=== PATIENT | female | born 1945 | race Caucasian/White ===

== ENCOUNTER → 2017-11-19 | Outpatient (CLI) | payer MEDICARE, OTHER ==
[~2017-11-19] MED LIST: ACID REDUCER; AMLO10; AMLO5 PO; ASPI81CH PO; ATOR20 PO; Benicar40 MG; ESOM20; FISH1000 PO; FURO20 PO; MULT50L PO; POTCHL10ER PO; SPIHYD PO; VALS80 PO; [UNRECOGNIZED DRUG - OTHER] PO
[2017-11-20 09:29] LABS: Alanine Aminotransfer (ALT/SGP 15 U/L (12-78); Albumin, Blood 3.9 g/dL (3.4-5.0); Albumin/Globulin Ratio 1.3 (0.8-1.8); Alk Phos 120 U/L (50-136); Anion Gap 5 mmol/L (6-16); Aspartate Aminotrans (AST/SGOT 10 U/L (12-37); Bilirubin, Total 0.4 mg/dL (0.1-1.0); Blood Urea Nitrogen 16 mg/dL (8-24); CO2, Blood 32 mmol/L (21-32); Chloride, Blood 104 mmol/L (98-108); Creatinine, Blood 0.62 mg/dL (0.40-1.00); Globulin, Blood 2.9 g/dL (2.2-4.0); Glomerular Filtration Rate >60 (60-); Glucose, Blood 97 mg/dL (70-99); Potassium, Blood 4.5 mmol/L (3.5-5.5); Sodium, Blood 141 mmol/L (136-145); Total Protein, Blood 6.8 g/dL (6.4-8.2)
== END | disposition home or self-care (01) ==
LOC: LAB 11:43
PROVIDERS: Nurse Practitioner Adult Health
DX: I10 Essential (primary) hypertension (principal)
CPT/HCPCS: 80053

== ENCOUNTER → 2017-12-30 | Outpatient (CLI) | payer MEDICARE, OTHER ==
[2018-01-01 14:18] LABS: Candida species (DNA Probe) Negative (NEGATIVE); G. vaginalis (DNA Probe) Negative (NEGATIVE); T. vaginalis (DNA Probe) Negative (NEGATIVE)
== END ==
LOC: LAB SHORT 18:04
PROVIDERS: Nurse Practitioner Adult Health
DX: N89.8 Other specified noninflammatory disorders of vagina (principal); R30.0 Dysuria
CPT/HCPCS: 87480; 87510; 87660

== ENCOUNTER 2019-05-13 09:00 | Emergency (ER) | payer MEDICARE, OTHER ==
[~2019-05-13] VITALS: Ht 167.6 cm; Wt 90.7 kg
[~2019-05-13 09:00] MED LIST changes: -AMLO10; +AMLO10 PO; +ASPI325EC PO; -ASPI81CH PO; -Benicar40 MG; +Benicar40 MG PO; -ESOM20; +ESOM20 PO
[2019-05-13 09:30] LABS: BASOPHILS ABSOLUTE AUTO 0.05 K/mm3 (0.00-0.23); BASOPHILS PERCENT AUTO 1 % (0-2); EOSINOPHILS ABSOLUTE AUTO 0.07 K/mm3 (0.00-0.68); EOSINOPHILS PERCENT AUTO 1 % (0-6); Hematocrit 45.3 % (33.0-51.0); Hemoglobin 14.7 g/dL (11.5-16.0); IMMATURE GRAN ABSOLUTE AUTO 0.03 K/mm3 (0.00-0.10); IMMATURE GRAN PERCENT AUTO 0 % (0-1); LYMPHOCYTES PERCENT AUTO 29 % (21-46); MONOCYTES ABSOLUTE AUTO 0.73 K/mm3 (0.16-1.47); MONOCYTES PERCENT AUTO 7 % (4-13); Mean Corpuscular HGB 29.3 pg (26.0-34.0); Mean Corpuscular HGB Conc 32.5 g/dL (31.5-36.5); Mean Corpuscular Volume 90 fL (80-100); NEUTROPHILS ABSOLUTE AUTO 6.54 K/mm3 (1.96-9.15); NEUTROPHILS PERCENT AUTO 63 % (41-73); Platelet Count 235 K/mm3 (150-400); RDW Coefficient Variation 12.8 % (11.7-14.2); RDW Standard Deviation 42.1 fL (35.1-46.3); Red Blood Cell Count 5.02 M/mm3 (3.80-5.20); White Blood Cell Count 10.42 K/mm3 (4.00-11.30)
[2019-05-13 09:53] LABS: Alanine Aminotransfer (ALT/SGP 15 U/L (12-78); Albumin, Blood 3.7 g/dL (3.4-5.0); Albumin/Globulin Ratio 1.1 (0.8-1.8); Alk Phos 125 U/L (50-136); Anion Gap 6 mmol/L (6-16); Aspartate Aminotrans (AST/SGOT 10 U/L (12-37); Bilirubin, Total 0.7 mg/dL (0.1-1.0); Blood Urea Nitrogen 16 mg/dL (8-24); Bun/Creatinine Ratio 24.9 (12.0-20.0); CO2, Blood 27 mmol/L (21-32); Calcium, Blood 9.4 mg/dL (8.5-10.1); Chloride, Blood 109 mmol/L (98-108); Creatinine, Blood 0.64 mg/dL (0.40-1.00); Globulin, Blood 3.3 g/dL (2.2-4.0); Glomerular Filtration Rate >60 (60-); Glucose, Blood 147 mg/dL (70-99); Potassium, Blood 4.2 mmol/L (3.5-5.5); Sodium, Blood 142 mmol/L (136-145); Troponin I <0.015 ng/mL (0.000-0.040)
[2019-06-24] MEDS ORDERED: CALCIUM PO (09:56)
== END 2019-05-13 10:56 | disposition home or self-care (01) ==
LOC: ER 09:00
PROVIDERS: Emergency Medicine
DX: R00.2 Palpitations (principal); Z88.8 Allergy status to other drugs, medicaments and biological substances; Z79.899 Other long term (current) drug therapy; Z79.82 Long term (current) use of aspirin; I10 Essential (primary) hypertension; E78.00 Pure hypercholesterolemia, unspecified
CPT/HCPCS: 36415; 71046; 80053; 83735; 84443; 84484; 85025; 93005; 93010; 93225; 93226; 99285-25

== ENCOUNTER 2019-06-18 06:47 | Day surgery (SDC) | payer MEDICARE, OTHER ==
[~2019-06-18] VITALS: Ht 162.6 cm; Wt 81.0 kg
--- NOTE | 2019-06-18 11:25 | NUR ---
2 CC AIR REMOVED FROM BAND. NO BLEEDING AT SITE. ADDITIONAL AIR REMOVED FROM TR BAND. NO BLEEDING.
--- NOTE | 2019-06-18 11:45 | NUR ---
DISCHARGE INSTRUCTIONS GUIVEN WITH VERBAL AND WRITTEN UNDERSTANDING.
--- NOTE | 2019-06-18 12:35 | NUR ---
TR BAND REMOVED. SITE CLEANED. CLOTH DOT AND IMMOBILIZER APPLIED. NO BLEEDING AT SITE.
--- NOTE | 2019-06-18 12:45 | NUR ---
DRESSED FOR DISCHARGE. IV REMOVBED INTACT.
--- NOTE | 2019-06-18 12:50 | NUR ---
DISCHARGED HOME VIA WHEELCHAIR . DRIVING.
[2019-06-24] MEDS ORDERED: CALCIUM PO (09:56)
== END 2019-06-18 12:55 | disposition home or self-care (01) ==
LOC: MHTC 06:47
DX: Z01.810 Encounter for preprocedural cardiovascular examination (principal); I25.10 Atherosclerotic heart disease of native coronary artery without angina pectoris; I77.1 Stricture of artery; I10 Essential (primary) hypertension; E78.5 Hyperlipidemia, unspecified; Z88.8 Allergy status to other drugs, medicaments and biological substances; Z79.899 Other long term (current) drug therapy; Z79.82 Long term (current) use of aspirin
CPT/HCPCS: 93454; 99152; 99153; C1769; C1894; J1644; J2250; J3010; J7030; Q9967

== ENCOUNTER 2019-07-13 05:57 | Inpatient (IN) | payer MEDICARE, OTHER ==
[~2019-07-13] VITALS: Ht 162.6 cm; Wt 80.2 kg
[~2019-07-13 05:57] MED LIST changes: +CALCIUM PO
--- NOTE | 2019-07-13 06:22 | NUR ---
History, Chart, Medications and Allergies reviewed before start of procedure. Patient confirms NPO status and agrees with scheduled surgery.
--- NOTE | 2019-07-13 06:43 | NUR ---
DENIES PAIN WHILE LAYING IN BED. REPORTS TAKING CHLORHEXIDINE SHOWERS X 5 DAYS.
--- NOTE | 2019-07-13 07:33 | NUR ---
VERIFIED WITH DR GARDUNO AND DR ZEPEDA, NO TYPE AND SCREEN TO BE DRAWN.
--- NOTE | 2019-07-13 07:37 | NUR ---
PATIENT'S RING PUT IN PATIENT BELONINGS BAG FOR SAFE KEEPING.
--- NOTE | 2019-07-13 12:15 | NUR ---
PT ARRIVED TO ROOM VIA OWN BED, A/0 X 4, DROWSY. POST OP VS COMMENCED AND STABLE. SPO2 88% RA, PLACED ON 2.5L NC WITH SPO2 AT 91-93%. PT DENIES N/V, STATES TO 0/10 PAIN R/T SHOULDER BLOCK
--- NOTE | 2019-07-13 14:43 | NUR ---
PT/OT IN WITH PT.
--- NOTE | 2019-07-13 17:38 | NUR ---
shift summary: post op vss completed and stable, a/o x 4, pleasant/cooperative, pt reports she is sleepy, SPO2 >93% on 1L. pt nauseous, vomiting x1, medicated per mar. pt up to chair following PT/OT for meal. pt's in the room x 2.
[2019-07-14 04:35] LABS: BASOPHILS ABSOLUTE AUTO 0.03 K/mm3 (0.00-0.23); BASOPHILS PERCENT AUTO 0 % (0-2); EOSINOPHILS PERCENT AUTO 0 % (0-6); Hematocrit 36.9 % (33.0-51.0); Hemoglobin 11.8 g/dL (11.5-16.0); IMMATURE GRAN ABSOLUTE AUTO 0.07 K/mm3 (0.00-0.10); IMMATURE GRAN PERCENT AUTO 0 % (0-1); LYMPHOCYTES ABSOLUTE AUTO 1.25 K/mm3 (0.84-5.20); LYMPHOCYTES PERCENT AUTO 7 % (21-46); MONOCYTES ABSOLUTE AUTO 1.24 K/mm3 (0.16-1.47); MONOCYTES PERCENT AUTO 7 % (4-13); Mean Corpuscular HGB 28.2 pg (26.0-34.0); Mean Corpuscular Volume 88 fL (80-100); Mean Platelet Volume 10.6 fL (9.1-12.4); NEUTROPHILS ABSOLUTE AUTO 16.34 K/mm3 (1.96-9.15); NEUTROPHILS PERCENT AUTO 86 % (41-73); Platelet Count 195 K/mm3 (150-400); RDW Coefficient Variation 13.1 % (11.7-14.2); RDW Standard Deviation 41.9 fL (35.1-46.3); Red Blood Cell Count 4.19 M/mm3 (3.80-5.20); White Blood Cell Count 18.93 K/mm3 (4.00-11.30)
[2019-07-14 04:51] LABS: Anion Gap 6 mmol/L (6-16); Blood Urea Nitrogen 21 mg/dL (8-24); Bun/Creatinine Ratio 36.2 (12.0-20.0); CO2, Blood 24 mmol/L (21-32); Chloride, Blood 108 mmol/L (98-108); Creatinine, Blood 0.58 mg/dL (0.40-1.00); Glomerular Filtration Rate >60 (60-); Glucose, Blood 140 mg/dL (70-99); Magnesium, Blood 2.1 mg/dL (1.6-2.4); Potassium, Blood 4.9 mmol/L (3.5-5.5); Sodium, Blood 138 mmol/L (136-145)
--- NOTE | 2019-07-14 06:35 | NUR ---
SHIFT SUMMARY PT A&O X4 T/O SHIFT. POD#1 R TSA; DRESSING CDI; ULTRASLING TO RUE T/O SHIFT. PPPX4; BRISK CAP REFILL. MOVES FINGERS R HAND WELL. NWB RUE. VSS. PT UP WITH CANE AND SBA. UP IN RECLINER THIS AM. SCD'S AND TEN'S TO BLE'S. O2 WEAN IN PROGRESS, 1L VIA NC FOR SATS >90%. CALL LIGHT IN REACH; PT DEMONSTRATES USE. WCTM UNTIL REPORT TO DAY SHIFT RN.
--- NOTE | 2019-07-14 06:55 | NUR ---
RECVD REPORT FROM PREVIOUS SHIFT RN MACK, PT SLEEPING IN CHAIR, CALL LIGHT WITHIN REACH
--- NOTE | 2019-07-14 10:51 | NUR ---
Sung Lara visiting pt and
--- NOTE | 2019-07-14 11:57 | NUR ---
pt sitting in chair, lunch tray provided, in room with pt
[2019-07-14] MEDS ORDERED: OXYC5 PO (15:00)
--- NOTE | 2019-07-14 15:30 | NUR ---
pt provided with discharge instructions, peripheral iv removed wnl, pt provided with prescription for analgesia. pt states understanding of instructions, has followup appointment. pts transferred pt's belongins to awaiting vehicle. pt transferred to awaiting vehicle via [id number]
== END 2019-07-14 15:40 | disposition home or self-care (01) | DRG 483 ==
LOC: SURS 05:57 → PRE IP 05:57 → ORSCMMR 05:57 → PRE IP 07:30 → EDSTATUS 07:30 → SURS 11:11
PROVIDERS: ADMIT Orthopaedic Surgery
PROC: 0RRJ0JZ Replacement of Right Shoulder Joint with Synthetic Substitute, Open Approach (ICD-10-PCS; principal; 2019-07-13 07:30)
DX: M19.011 Primary osteoarthritis, right shoulder (principal); I10 Essential (primary) hypertension; I25.10 Atherosclerotic heart disease of native coronary artery without angina pectoris; K21.9 Gastro-esophageal reflux disease without esophagitis
CPT/HCPCS: 36415; 73030; 80048; 83735; 85025; 88300; 97110; 97162; 97166; 97530; 97535; C1776; J0171; J0690; J0735; J1100; J1885; J2310; J2370; J2405; J2704; J2795; J3010; J7120

== ENCOUNTER 2019-11-12 07:45 | Day surgery (SDC) | payer MEDICARE, OTHER ==
[~2019-11-12 07:45] MED LIST changes: +OXYC5 PO
== END 2019-11-12 23:01 | disposition home or self-care (01) ==
LOC: MOI US 07:45 → EDSTATUS 08:15 → MOI US 08:15
DX: D05.11 Intraductal carcinoma in situ of right breast (principal); I10 Essential (primary) hypertension; E78.5 Hyperlipidemia, unspecified; I25.10 Atherosclerotic heart disease of native coronary artery without angina pectoris; Z17.0 Estrogen receptor positive status [ER+]; Z79.82 Long term (current) use of aspirin; Z79.899 Other long term (current) drug therapy; Z88.5 Allergy status to narcotic agent; Z88.8 Allergy status to other drugs, medicaments and biological substances
CPT/HCPCS: 19083; 77065; 88305; 88342; 88360; A4648; G0279

== ENCOUNTER 2019-12-06 07:22 | Day surgery (SDC) | payer MEDICARE, OTHER ==
[2019-12-06] MEDS ORDERED: Calcium With V1 EAC2 PO (09:37)
== END 2019-12-06 22:42 | disposition home or self-care (01) ==
LOC: MOI US 07:22
DX: C50.411 Malignant neoplasm of upper-outer quadrant of right female breast (principal)
CPT/HCPCS: 19285; 77065

== ENCOUNTER 2019-12-07 09:22 | Day surgery (SDC) | payer MEDICARE, OTHER ==
[~2019-12-07] VITALS: Ht 160 cm; Wt 83.7 kg
[~2019-12-07 09:22] MED LIST changes: +Calcium With V1 EAC2 PO
--- NOTE | 2019-12-07 10:55 | NUR ---
History, Chart, Medications and Allergies reviewed before start of procedure. Patient confirms NPO status and agrees with scheduled surgery. Lungs clear T/O to Auscultation. Patient States Post-Procedure ride home has been arranged. Pre-Op teaching done. Pt verbalizes understanding. Patient reports completing Chlorhexadine shower X2 prior to admission to hospital.
--- NOTE | 2019-12-07 14:30 | NUR ---
"DAY SURGERY RN | DISCHARGE VSS. A/O. DENIES NAUSEA. PAIN MANAGEABLE. TOLERATING PO FLUIDS AND FOOD. PAIN PILL GIVEN PER EMAR. STATES READY TO GO HOME. NO ISSUES. DISCHARGE INSTRUCTIONS AND RX GIVEN TO PATIENT WITH FAMILY PRESENT. IS RIDE HOME. TAKEN IN WHEELCHAIR BY VOLUNTEER TO MAIN ENTRANCE."
== END 2019-12-07 22:47 | disposition home or self-care (01) ==
LOC: ORSCMMR 09:22 → NM 09:22
PROVIDERS: Surgery
PROC: 0HBT0ZZ Excision of Right Breast, Open Approach (ICD-10-PCS; principal; 2019-12-07 11:30)
PROC: 07B50ZX Excision of Right Axillary Lymphatic, Open Approach, Diagnostic (ICD-10-PCS; principal; 2019-12-07 11:30)
DX: C50.411 Malignant neoplasm of upper-outer quadrant of right female breast (principal); D36.0 Benign neoplasm of lymph nodes; I10 Essential (primary) hypertension; E78.5 Hyperlipidemia, unspecified; Z79.899 Other long term (current) drug therapy; Z79.82 Long term (current) use of aspirin
CPT/HCPCS: 38792; 76098; 88305; 88307; 88342; A9520; J0690; J1100; J2250; J2405; J2704; J2765; J3010; J7120; Q9968

== ENCOUNTER 2020-04-11 10:36 | Day surgery (SDC) | payer MEDICARE, OTHER ==
[~2020-04-11] VITALS: Ht 162.6 cm; Wt 82.1 kg
[2020-04-11] MEDS ORDERED: PANT40 (11:05)
== END 2020-04-11 12:15 | disposition home or self-care (01) ==
LOC: ORSCSDS 10:36
PROVIDERS: Internal Medicine Gastroenterology
PROC: 0DB58ZX Excision of Esophagus, Via Natural or Artificial Opening Endoscopic, Diagnostic (ICD-10-PCS; principal; 2020-04-11 12:00)
PROC: 0DB68ZX Excision of Stomach, Via Natural or Artificial Opening Endoscopic, Diagnostic (ICD-10-PCS; principal; 2020-04-11 12:00)
DX: R11.0 Nausea (principal); K22.70 Barrett's esophagus without dysplasia; K44.9 Diaphragmatic hernia without obstruction or gangrene; K31.7 Polyp of stomach and duodenum; I10 Essential (primary) hypertension; E78.5 Hyperlipidemia, unspecified; Z79.82 Long term (current) use of aspirin; Z79.899 Other long term (current) drug therapy
CPT/HCPCS: 88305; 88342; J2704; J7120